=== PATIENT | male | born 1950 | race Caucasian/White ===

== ENCOUNTER 2017-06-16 11:45 | Emergency (ER) | payer MEDICARE ==
[~2017-06-16] VITALS: Ht 182.9 cm; Wt 90.7 kg
[2017-06-16] MEDS ORDERED: OMEPRAZOLE40 MG PO (12:15)
[2017-06-16] MEDS ORDERED: ZANTAC 150MG T150 MG PO (12:15)
[2017-06-16] MEDS ORDERED: POTASSIUM CITR10 ME1 PO (12:15)
[2017-06-16] MEDS ORDERED: [UNRECOGNIZED DRUG - OTHER] PO (12:16)
[2017-06-16 13:36] LABS: ABSOLUTE BASOPHILS 0.1 thou/uL (0.0-0.2); ABSOLUTE EOSINOPHILS 0.1 thou/uL (0.0-0.7); ABSOLUTE LYMPHOCYTES 1.7 thou/uL (0.8-5.3); ABSOLUTE MONOCYTES 0.7 thou/uL (0.0-1.2); ABSOLUTE NEUTROPHILS 2.9 thou/uL (1.6-8.1); BASOPHILS 1.4 %; HEMATOCRIT 42.6 % (42.0-52.0); HEMOGLOBIN 13.9 gm/dL (14.0-18.0); LYMPHOCYTES 30.4 %; MCH 29.4 pg (26.0-34.0); MCHC 32.7 g/dL (28.0-37.0); MCV 89.9 fL (80.0-100.0); MONOCYTES 12.3 %; MPV 9.6 fl. (7.2-11.1); NUCLEATED RBCS 0 /100WBC; PLATELET COUNT* 136 thou/uL (150-400); POLYS 53.9 %; RBC 4.74 mil/uL (4.50-6.00); RDW-CV 13.8 % (10.5-14.5); WBC 5.4 thou/uL (4.0-11.0)
[2017-06-16 13:45] LABS: CALCIUM 8.5 mg/dL (8.5-10.1); CREATININE 0.9 mg/dL (0.6-1.3)
[2017-06-16 13:49] LABS: ALBUMIN 3.7 g/dL (3.4-5.0); TOTAL BILIRUBIN 0.3 mg/dL (<0.1-1.0); TOTAL PROTEIN 6.9 g/dL (6.4-8.2)
[2017-06-16] MEDS ORDERED: PREDNISONE 20 M20 M1 PO (14:57)
[2017-06-16] MEDS ORDERED: NORCO 5-325 TA1 EACH PO (14:57)
[2017-06-16 15:11] VITALS: BP 132/96
== END 2017-06-16 15:13 | disposition home or self-care (01) ==
LOC: M.ERS 11:45
PROVIDERS: Family Medicine
DX: M79.604 Pain in right leg (principal); K21.9 Gastro-esophageal reflux disease without esophagitis; Z87.442 Personal history of urinary calculi; Z98.890 Other specified postprocedural states; Z88.1 Allergy status to other antibiotic agents; Z88.0 Allergy status to penicillin